=== PATIENT | male | born 1970 | race Two or more races ===

== ENCOUNTER 2021-02-24 09:00 | Outpatient (CLI) | payer OTHER | END 2021-02-24 09:15 | disposition home or self-care (01) | LOC: PPH VACUNA 09:00 | PROVIDERS: ATTEND Emergency Medicine Pediatric Emergency Medicine | DX: Z23 Encounter for immunization (principal) ==

== ENCOUNTER 2024-06-05 06:26 | Day surgery (SDC) | payer OTHER ==
[2024-06-05] MEDS ORDERED: MIDAZOLAM HCL 2 MG/2 ML VIAL IV ONE (10:30)
[2024-06-05] MEDS ORDERED: fentaNYL CITRATE 50 MCG/ML AMPUL IV ONE (10:30)
[2024-06-05] MEDS ORDERED: DIPHENHYDRAMINE HCL 50 MG/ML VIAL 1ML IV ONE (10:30)
== END 2024-06-05 14:01 | disposition home or self-care (01) ==
LOC: AMB-ENDOS 06:26
PROVIDERS: ATTEND Surgery
DX: D12.5 Benign neoplasm of sigmoid colon (principal); D12.8 Benign neoplasm of rectum; K62.5 Hemorrhage of anus and rectum; K62.89 Other specified diseases of anus and rectum; K64.8 Other hemorrhoids; K63.5 Polyp of colon; K57.30 Diverticulosis of large intestine without perforation or abscess without bleeding